=== PATIENT | male | born 2000 | race Caucasian/White ===

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

== ENCOUNTER 2025-01-18 11:57 | Emergency (ER) | payer SELFPAY ==
[2025-01-18 12:06] VITALS: BP 114/73; PULSE 57; RESP 16; TEMP 36.6; O2SAT 100
--- NOTE | 2025-01-18 12:24 | ED.UPPEXIN ---
HPI - Extremity Injury (Upper) General Chief Complaint: Extremity Injury, Upper Stated Complaint: Injured Finger Time Seen by Provider: 01/18/25 12:12 Source: patient and RN notes reviewed Mode of arrival: ambulatory Limitations: no limitations History of Present Illness HPI narrative: Patient presents today complaining of an injury to the left index finger approximately 1 hour prior to arrival. Patient states it was pinned between 2 metal objects work removing some skin from the dorsum of the finger. He is not up-to-date on his tetanus vaccine. Denies numbness or tingling. Related Data Home Medications ?Medication ?Instructions ?Recorded ?Confirmed ?Last Taken ?Type No Home Medications 01/18/25 01/18/25 Unknown History Allergies Allergy/AdvReac Type Severity Reaction Status Date / Time amoxicillin Allergy Mild Other Verified 01/18/25 12:13 clavulanic acid Allergy Mild Hives Verified 01/18/25 12:13 Review of Systems Review of Systems: CONSTITUTIONAL: Denies body aches, fever, chills, or sweats. EYES: Denies visual changes, redness, or discharge. ENT: Denies rhinorrhea, congestion, sore throat, or otalgia. CARDIOVASCULAR: Denies chest pain, palpitations, or edema. RESPIRATORY: Denies cough or dyspnea. GASTROINTESTINAL: Denies abdominal pain, nausea, vomiting, or diarrhea. GENITOURINARY: Denies dysuria or hematuria. SKIN: Denies rash, itching, or wounds. MUSCULOSKELETAL: + finger injury NEUROLOGIC: Denies headache, numbness, tingling, or weakness. PSYCH: Denies depression or anxiety. PMFSH Comments At time of signature, I have reviewed and agree with nursing past medical, surgical, social and family history unless otherwise noted. Please see nursing chart for further information. There is no relevant family history pertinent to the presenting complaint Exam Narrative: GENERAL: Well-appearing, well-nourished, and in no acute distress. HEAD: Normocephalic, atraumatic. EYES: EOMI. No redness or drainage. Conjunctivae normal. ENT: Mucous membranes pink and moist. NECK: Normal AROM. CHEST: No respiratory distress. EXTREMITIES: Left 2nd finger: 1 cm superficial linear laceration to the dorsum the PIP. 1 x 0.5 cm superficial skin avulsion to the dorsum of the proximal phalanx. No active bleeding. No edema, ecchymosis. Distal sensation intact. Capillary refill normal. Full range of motion of the finger against resistance. SKIN: Warm, dry, no rash. Capillary refill normal. Normal skin turgor. NEURO: No focal deficits. Alert and oriented x3. Gait steady. PSYCH: Normal affect. No signs of depression or anxiety. Course Course Level of Care: Express Care Visit Vital Signs Vital signs: Vital Signs Temperature 97.9 F 01/18/25 12:06 Pulse Rate 57 L 01/18/25 12:06 Respiratory Rate 16 01/18/25 12:06 Blood Pressure 114/73 01/18/25 12:06 Pulse Oximetry 100 01/18/25 12:06 Temperature 97.9 F 01/18/25 12:06 Pulse Rate 57 L 01/18/25 12:06 Respiratory Rate 16 01/18/25 12:06 Blood Pressure 114/73 01/18/25 12:06 Pulse Oximetry 100 01/18/25 12:06 Reviewed MDM - Extremity Injury (Upper) MDM Narrative Medical decision making narrative: Patient has no bony tenderness of the finger with full range of motion. He has a superficial skin avulsion and laceration. No indication for closure or repair at this time. Wound has been cleansed and dressed. Care instructions given. Tetanus shot given. Anticipatory guidance given. Differential Diagnosis Differential diagnosis: Likely other (Contusion, fracture, skin avulsion, laceration) Critical Care Time Critical Care Time Critical Care Time: No Discharge Plan Discharge Clinical Impression: Finger injury Qualifiers: Encounter type: initial encounter Laterality: left Qualified Code(s): S69.92XA - Unspecified injury of left wrist, hand and finger(s), initial encounter Patient Disposition: Home Condition: Stable Instructions: Puncture Wound (ED), Skin Avulsion (ED) Additional Instructions: Wash wound with soap and water daily. Keep covered until scabbed over. You may apply Vaseline if you wish. Monitor for any signs of infection such as redness, swelling, increased pain or drainage, and see your doctor if you note any. Take Tylenol or ibuprofen or pain, if able. Your tetanus shot has been updated today. Patient Language: Slovak Prescriptions: No Action No Home Medications Follow-up/Referrals: PHYSICIAN,CREATIVE RECRUITER [Primary Care Provider] - Time of Disposition: 12:28
[2025-01-18] MEDS: TETANUS,DIPHTHERIA,AC PERTUSSIS ADULT (0.5 ML) BOOSTRIX IM (12:29)
== END 2025-01-18 12:34 | disposition home or self-care (01) ==
PROVIDERS: Emergency Provider Nurse Practitioner
DX: S61.211A Laceration without foreign body of left index finger without damage to nail, initial encounter (principal); X58.XXXA Exposure to other specified factors, initial encounter; Z23 Encounter for immunization
CPT/HCPCS: 90471; 90715; 99212; G0463

== ENCOUNTER 2025-03-10 23:25 | Emergency (ER) | payer SELFPAY ==
--- NOTE | ~2025-03-10 | XR_ITS ---
XR chest 1V portable 03/11/2025 00:47 Indication: Fever Procedure: AP portable chest Comparison: No prior studies for comparison. Findings: Heart size normal. No focal air space disease, pulmonary edema, pleural effusion or suspect ed pneumothorax. Impression: 1: No acute cardiopulmonary disease. Reviewed, dictated and finalized at location B. Impression: 1: No acute cardiopulmonary disease.
--- OUTSIDE RECORDS SUMMARY | 2025-03-10 23:28 | XMS_ITS | Clinical Summary ---
Author Organization [facility] Address [address] [place] [address] Phone Care Team Providers Care Pocket Secretary Assembler Name Role Phone Unavailable Primary Care Provider Unavailabl e Allergies No known active allergies Medications albuterol 108 (90 Base) MCG/ACT Aerosol Solution take 1-2 Puffs by inhalation every 4 hours as needed for Wheezing or Cough (shortness of breath, chest tightness). 8.5 g 0 Active Social History Tobacco Use Types Packs/Day Years Used Date Smoking Tobacco: Never Assessed Sex and Gender Information Value Date Recorded Sex Assigned at Not on file Legal Sex Male 11:50 AM CDT Gender Identity Not on file Sexual Orientation Not on file Plan of Treatment Health Maintenance Due Date Last Done Comments Hepatitis C Virus (HCV) Screening 2001 Human Papillomavirus (HPV) Immunization (1 - Male 3-dose series) 01/15/2016 SARS-COV-2 Immunization ( - season) 2024 Influenza Immunization (#1) 2025 Respiratory Syncytial Virus (RSV) Immunization (Adult) (1 - 1-dose 75+ series) 01/15/2076 Hepatitis B Immunization Completed 002, 2001, 2001 Pneumococcal Immunization Combined Aged Out 01/19/2002, 2001, 2001 No longer eligible based on patient's age to complete this topic DTaP/Tdap/Td Immunization Discontinued 2011, 11/03/2010, 2001, Additional history exists TdaP Immunization Completed 03/29/2012 Meningococcal Immunization (ACWY) Aged Out 04/21/2012 No longer eligible based on patient's age to complete this topic Rotavirus Immunization Aged Out No lo nger eligible based on patient's age to complete this topic
[2025-03-10 23:43] VITALS: BP 127/73; PULSE 62; RESP 14; TEMP 36.4; O2SAT 98
[2025-03-10 23:48] VITALS: O2SAT 99
[2025-03-11] VITALS (11 sets, daily range): BP systolic 97–131; BP diastolic 64–84; PULSE 82–96; RESP 16–18; O2SAT 96–100
--- OUTSIDE RECORDS SUMMARY | 2025-03-11 00:04 | XMS_ITS | Clinical Summary ---
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 Gender Identity Not on file Sexual Orientation Not on file Obstetrics History Last Filed Vital Signs Vital Sign Reading Time Taken Comments Blood Pressure 123/75 02/03/2022 1:08 PM CDT Pulse 56 02/03/2022 1:08 PM CDT Temperature 36.6 C (97.8 F) 02/03/2022 9:49 AM CDT Respiratory Rate 16 02/03/2022 1:08 PM CDT Oxygen Saturation 100% 02/03/2022 1:08 PM CDT Inhaled Oxygen Concentration - - Weight 61.2 kg (135 lb) 02/03/2022 12:21 PM CDT Height 180.3 cm (5' 11) 02/03/2022 9:49 AM CDT Body Mass Index 18.83 02/03/2022 9:49 AM CDT Plan of Treatment Not on file Care Teams Windshield Repair Technician Relationship Specialty Start Date End Date No, Physician PCP - General 02/03/22
--- OUTSIDE RECORDS SUMMARY | 2025-03-11 00:04 | XMS_ITS | Referral Summary ---
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
[2025-03-11] MEDS: SODIUM CHLORIDE 0.9% IV 1,000 ML 999 ML IV CONT (00:50)
[2025-03-11 00:58] LABS: Hematocrit 40.7 % (42.0-52.0); Hemoglobin 14.7 g/dL (14.0-18.0); Immature Granulocyte Percent A 0.2 % (0-0.5); Lymphocytes Absolute Auto 2.65 K/mm3 (0.9-3.2); Mean Corpuscular HGB Conc 36.1 g/dl (32-36); Mean Corpuscular Hemoglobin 30.8 pg (26-34); Mean Corpuscular Volume 85.1 fl (80-100); Nucleated Red Blood Cells Absolute Auto 0.000 K/mm3 (0.0-0.012); Nucleated Red Blood Cells Perc 0.0 % (0.0-0.2); Platelet Count Result 278 k/mm3 (150-375); Red Blood Count 4.78 M/mm3 (4.6-6.20); White Blood Count 6.3 K/mm3 (4.5-10.0)
[2025-03-11 01:08] LABS: Alanine Aminotransferase 25 U/L (6-50); Albumin Level 4.4 g/dL (3.5-5.1); Alkaline Phosphatase 66 U/L (38-126); Anion Gap 7 mmol/L (4-12); Aspartate Amino Transferase 30 U/L (17-59); Bilirubin,Total 0.4 mg/dL (0.2-1.3); Blood Urea Nitrogen 14 mg/dL (9-20); Calcium 9.1 mg/dL (8.4-10.2); Carbon Dioxide 26 mmol/L (22-30); Chloride 104 mmol/L (98-107); Estimated Glomerular Filt Rate > 60; Glucose 98 mg/dL (65-110); Potassium 3.6 mmol/L (3.4-5.0); Sodium 137 mmol/L (137-145); Total Protein 7.1 g/dL (6.3-8.2)
[2025-03-11 01:17] LABS: Add Urine Microscopic? YES; Appearance Urine Turbid (Clear); Glucose Urine UA Negative (Negative); Leukocyte Esterase Ur Negative LEU/UL (Negative); Nitrate Urine Negative (Negative); Non Pathogenic Casts 0-2; Specific Grav Ur 1.023 (1.001-1.035)
[2025-03-11 01:31] LABS: Influenza A QL RT-PCR Negative (Negative); Influenza B QL RT-PCR Negative (Negative); RSV RNA, RT-PCR Negative (Negative); SARS-CoV-2 RNA PCR Negative (Negative)
[2025-03-11] MEDS: KETOROLAC 15 MG/ML VIAL (*BKC) IV PUSH (01:38)
--- NOTE | 2025-03-11 01:40 | ED.GENADULT ---
HPI - General Adult General Chief complaint: Fever Stated complaint: fever Time Seen by Provider: 03/10/25 23:48 History of Present Illness HPI narrative: This is a 25-year-old male presenting with fever. Patient says that earlier today he developed headache, sinus pressure, temperature of 100.0, nausea vomiting diarrhea. He denies chest pain or difficulty breathing or abdominal pain. No urinary symptoms. Patient is concerned because he removed a tick from his side 2 weeks ago. The tick was on for approximately 14 hours. He never developed a bull's-eye or disseminated rash. No joint pain, or may's palsy. Related Data Home Medications ?Medication ?Instructions ?Recorded ?Confirmed ?Last Taken ?Type No Home Medications 01/18/25 01/18/25 Unknown History Allergies Allergy/AdvReac Type Severity Reaction Status Date / Time amoxicillin Allergy Mild Other Verified 01/18/25 12:13 clavulanic acid Allergy Mild Hives Verified 01/18/25 12:13 Exam Narrative: APPEARANCE: No apparent distress. Head: atraumatic. EYES: EOMI, NOSE: Atraumatic NECK: Trachea midline RESPIRATORY: No increased rate of breathing clear to auscultation CARDIOVASCULAR: RRR, no peripheral edema ABDOMINAL: Non-distended soft nontender MUSCULOSKELETAl: No obvious deformities NEURO: Alert. Moving 4/4 extremities SKIN:: Warm, dry. Normal color PSYCHIATRIC: Normal affect Course Vital Signs Vital signs: Vital Signs Temperature 97.6 F 03/10/25 23:43 Pulse Rate 62 03/10/25 23:43 Respiratory Rate 14 03/10/25 23:43 Blood Pressure 127/73 03/10/25 23:43 Pulse Oximetry 98 03/10/25 23:43 Temperature 97.6 F 03/10/25 23:43 Pulse Rate 62 03/10/25 23:43 Respiratory Rate 14 03/10/25 23:43 Blood Pressure 127/73 03/10/25 23:43 Pulse Oximetry 98 03/10/25 23:43 Medical Decision Making [facility] Narrative Medical decision making narrative: -Course: 25-year-old male presenting with fever. Presentation most consistent with URI. He is concerned about Lyme disease although typically a tick needs to be attached >24-36 hours and his was on for approximately 14hrs. He did not fill bull's-eye rash. Lyme disease is possible but far less likely. Lyme disease testing has been ordered although this is a send out and the patient is comfortable checking the results on the patient portal. It is positive he will see his primary care physician for further treatment. White count is normal with no lymphocytosis. Viral swabs negative. Urine not indicative infection. Chest x-ray clear. He is also given return precautions for symptoms of Lyme disease as well as worsening condition overall. -DDX includes but is not limited to: Viral syndrome, pneumonia, UTI, Lyme disease Vital Signs Vital Signs: Vital Signs Temperature 97.6 F 03/10/25 23:43 Pulse Rate 62 03/10/25 23:43 Respiratory Rate 14 03/10/25 23:43 Blood Pressure 127/73 03/10/25 23:43 Pulse Oximetry 98 03/10/25 23:43 Temperature 97.6 F 03/10/25 23:43 Pulse Rate 62 03/10/25 23:43 Respiratory Rate 14 03/10/25 23:43 Blood Pressure 127/73 03/10/25 23:43 Pulse Oximetry 98 03/10/25 23:43 Lab Data 03/11/25 00:48 03/11/25 00:48 Labs: Lab Results 03/11/25 03/11/25 Range/Units 00:48 01:06 WBC 6.3 (4.5-10.0) K/mm3 RBC 4.78 (4.6-6.20) M/mm3 Hgb 14.7 (14.0-18.0) g/dL Hct 40.7 L (42.0-52.0) % MCV 85.1 (80-100) fl MCH 30.8 (26-34) pg MCHC 36.1 H (32-36) g/dl RDW 12.4 (11.5-14.5) % Plt Count 278 (150-375) k/mm3 MPV 9.0 (7.4-10.4) fl Immature Gran % (Auto) 0.2 (0-0.5) % Neut % (Auto) 43.4 L (45.5-73.1) % Lymph % (Auto) 42.1 (18.3-44.2) % [place] % (Auto) 8.3 (2.6-8.5) % Eos % (Auto) 5.2 H (0-4.4) % Baso % (Auto) 0.8 (0.2-1.2) % Lymph # (Auto) 2.65 (0.9-3.2) K/mm3 [place] # (Auto) 0.5 (0.1-0.6) K/mm3 Eos # (Auto) 0.3 (0-0.3) K/mm3 Baso # (Auto) 0.1 (0.0-0.1) K/mm3 Abs Immat Gran (auto) 0.01 (0.00-0.031) K/mm3 Absolute Neuts (auto) 2.7 (1.3-6.7) K/mm3 Absolute Nucleated RBC 0.000 (0.0-0.012) K/mm3 Nucleated RBC % 0.0 (0.0-0.2) % Sodium 137 (137-145) mmol/L Potassium 3.6 (3.4-5.0) mmol/L Chloride 104 (98-107) mmol/L Carbon Dioxide 26 (22-30) mmol/L Anion Gap 7 (4-12) mmol/L BUN 14 (9-20) mg/dL Creatinine 0.86 (0.7-1.3) mg/dL Estim Creat Clear Calc Not Reportable Estimated GFR > 60 (59 - ) Glucose 98 (65-110) mg/dL Calcium 9.1 (8.4-10.2) mg/dL Total Bilirubin 0.4 (0.2-1.3) mg/dL AST 30 (17-59) U/L ALT 25 (6-50) U/L Alkaline Phosphatase 66 (38-126) U/L Total Protein 7.1 (6.3-8.2) g/dL Albumin 4.4 (3.5-5.1) g/dL Urine Color Yellow (Yellow) Urine Appearance Turbid H (Clear) Urine pH 6.5 (5.0-9.0) Ur Specific [place] 1.023 (1.001-1.035) Urine Protein Negative (Negative) mg/dL Urine Glucose (UA) Negative (Negative) mg/dL Urine Ketones Trace H (Negative) mg/dL Ur Blood (Man) Negative (Negative) Urine Nitrate Negative (Negative) Urine Bilirubin Negative (Negative) Urine Urobilinogen 1.0 (<2.0) mg/dL Leukocyte Esterase Rfl Negative (Negative) CADEN/UL Urine RBC 0-2 (0-2) /hpf Urine WBC 0-5 (0-3) /hpf Ur Squamous Epith Cells None seen (Few) /hpf Urine Bacteria None seen /hpf Urine Casts 0-2 Lyme IgG 18 kDa Band Pending Lyme IgG 23 kDa Band Pending Lyme IgG 28 kDa Band Pending Lyme IgG 30 kDa Band Pending Lyme IgG 39 kDa Band Pending Lyme IgG 41 kDa Band Pending Lyme IgG 45 kDa Band Pending Lyme IgG 58 kDa Band Pending Lyme IgG 66 kDa Band Pending Lyme IgG 93 kDa Band Pending Lyme IgG Ab (Immblot) Pending Lyme IgM Ab (Immblot) Pending Lyme IgM 23 kDa Band Pending Lyme IgM 39 kDa Band Pending Lyme IgM 41 kDa Band Pending Lyme Total Antibody Pending Lyme Disease (PCR) Pending Influenza A (RT-PCR) Negative (Negative) Influenza B (RT-PCR) Negative (Negative) RSV (RT-PCR) Negative (Negative) SARS-CoV-2 RNA (RT-PCR) Negative (Negative) Discharge Plan Discharge Clinical Impression: Fever Patient Disposition: Home Condition: Stable Instructions: Antibiotic Form, Viral Syndrome (ED) Additional Instructions: He was seen emergency department for a fever. This is most likely a virus. Use over the counter Motrin Tylenol for symptoms follow-up with your primary care physician. You were exposed to a tick panel Lyme disease much less likely we have since testing. This should return in several days. Please check your patient portal for the results and follow-up with your primary care physician. If you develop joint pain, facial paralysis or diffuse rash please return to the ED for re-evaluation. Patient Language: Greenlandic Prescriptions: No Action No Home Medications Follow-up/Referrals: PHYSICIAN,CREATIVE TECHNOLOGIST [Primary Care Provider] -
--- NOTE | 2025-03-11 01:47 | ECG_ITS ---
Test Date: 2025-03-11 02:02:01 Measurements Intervals [place] Rate: 60 P: 58 NV: 148 QRS: 67 QRSD: 117 T: 61 QT: 409 QTc: 412 Interpretive Statements SINUS RHYTHM WITH SINUS ARRHYTHMIA INCOMPLETE RIGHT BUNDLE BRANCH BLOCK [90+ ms QRS DURATION, TERMINAL R IN V1/V2, 40+ ms S IN I/aVL/V4/V5/V6] No previous ECG available for comparison Electronically Signed On 03-11-2025 11:08:55 CDT by Farshad Sorensen M.D.
== END 2025-03-11 02:32 | disposition home or self-care (01) ==
PROVIDERS: Emergency Provider Emergency Medicine
DX: R50.9 Fever, unspecified (principal); Z20.822 Contact with and (suspected) exposure to COVID-19
CPT/HCPCS: 36415; 71045; 80053; 81001; 85025; 86617; 86618; 87476; 87637; 93005; 96361; 96374; 99284; J1885; J7030